=== PATIENT | female | born 1975 | race African-American/Black ===

== ENCOUNTER 2018-01-05 15:20 | Observation (INO) ==
[2018-01-05] MEDS ORDERED: ONDANSETRON 4 MG/2 ML VIAL IV STA (15:30)
[2018-01-05] MEDS ORDERED: HYDROmorphone 2 MG/1 ML VIAL IV STA (15:30)
[2018-01-05 15:44] LABS: Basophils % 0.4 % (0.0-0.8); Eosinophils # 0.1 10*3/uL (0.0-0.87); Eosinophils % 1.9 % (0.00-10.9); Hematocrit 40.4 VOL% (35.7-47.0); Immature Granulocytes % 1.9 %; Immature Granulocytes Absolute 0.14 #; Lymphocytes # 2.3 10*3/uL (1.4-4.0); Lymphocytes % 31.3 % (21.3-54.2); Mean Corpuscular HGB Conc 32.2 GM/DL (32-36); Mean Corpuscular Hemoglobin 29 PG (27-34); Mean Corpuscular Volume 89.2 FL (87-102); Mean Platelet Volume 9.8 FL (9.6-12.0); Monocytes # 0.4 10*3/uL (0.11-0.8); Monocytes % 5.2 % (1.7-12.7); Neutrophils # 4.4 10*3/uL (1.4-7.4); Neutrophils % 59.3 % (38.7-73.9); Platelet Count 371 T/CUMM (130-400); Red Blood Count 4.53 MC/CUMM (3.8-5.5); White Blood Count 7.4 T/CUMM (4-12)
[2018-01-05 16:06] LABS: Alanine Aminotransferase 18 U/L (13-56); Albumin 3.7 G/DL (3.4-5.0); Alkaline Phosphatase 91 U/L (45-117); Amylase 63 U/L (25-115); Aspartate Amino Transferase 17 U/L (0-37); Blood Urea Nitrogen 10 MG/DL (7-18); Calcium 8.5 MG/DL (8.5-10.1); Glucose 138 MG/DL (74-106); Osmolality,Calculated 281.3 MOS/KG (273-304); Potassium 3.7 MMOL/L (3.5-5.1); Sodium 141 MMOL/L (136-145); Total Protein 7.9 G/DL (6.4-8.3)
[2018-01-05 16:08] LABS: Lactic Acid 2.6 MMOL/L (0.4-2.0); Troponin I < 0.015 NG/ML (0.00-0.045)
[2018-01-05 16:38] LABS: PT Patient Result 10.7 SECS; Partial Thromboplastin Time 25.4 SECS (0-40)
[2018-01-05 16:44] LABS: Apearance,Urine CLEAR (Clear); Bilirubin,Urine Negative (Negative); Blood, Urine Negative (Negative); Glucose,Urine (UA) Negative (Negative); Ketones,Urine Negative (Negative); Mucus,Urine Occasional /LPF (Occasional); Nitrite,Urine Negative (Negative); Protein,Urine Negative; RBC,Urine <1 /HPF (0-4); Urine Color Yellow (Yellow); Urine Specific Gravity 1.036 (1.001-1.035); Urine Urobilinogen < 2.0 EU/DL (0.2-1.0); WBC,Urine <1 /HPF (0-6)
[2018-01-05 17:14] LABS: Barbiturates Screen,Urine Negative (Negative); Benzodiazepines Screen,Urine Negative (Negative); Cannabinoid Screen,Urine Negative (Negative); Opiate Screen,Urine Positive (Negative); Phencyclidine Screen,Urine Negative (Negative)
[2018-01-05] MEDS ORDERED: BUPIVACAINE 0.25% /EPI 10 ML VIAL ONE (17:21)
[2018-01-05] MEDS ORDERED: LIDOCAINE 1%/EPI INJ 20 ML VIAL ONE (17:21)
[2018-01-05] MEDS ORDERED: GLUCAGON 1 MG VIAL IM PRN (17:23)
[2018-01-05] MEDS ORDERED: CITRIC ACID/SODIUM CITRATE 30 ML UDCUP ONE (17:23)
[2018-01-05] MEDS ORDERED: DEXTROSE 50% 25 GM/50 ML VIAL IV PRN (17:23)
[2018-01-05] MEDS ORDERED: MORPHINE 4 MG/1 ML VIAL IV PRN (17:23)
[2018-01-05] MEDS ORDERED: CITRIC ACID/SODIUM CITRATE 30 ML UDCUP PO ONE (17:27)
[2018-01-05] MEDS ORDERED: PANTOPRAZOLE 40 MG VIAL IV ONE (17:27)
[2018-01-05] MEDS ORDERED: METOPROLOL TARTRATE 5 MG/5 ML VIAL IV ONE (17:46)
[2018-01-05] MEDS ORDERED: HYDROmorphone 2 MG/1 ML VIAL IV PRN (18:15)
[2018-01-05] MEDS ORDERED: ONDANSETRON 4 MG/2 ML VIAL IV PRN (18:15)
[2018-01-05] MEDS ORDERED: SODIUM CHLORIDE 0.9% 1,000 ML IV ONE (18:27)
[2018-01-05] MEDS ORDERED: SEVOFLURANE 1 UNIT/15 MINUTE INH ONE (18:27)
[2018-01-05] MEDS ORDERED: MIDAZOLAM 2 MG/2 ML VIAL ONE (18:27)
[2018-01-05] MEDS ORDERED: ONDANSETRON 4 MG/2 ML VIAL ONE (18:27)
[2018-01-05] MEDS ORDERED: SUCCINYLCHOLINE 200 MG/10 ML VIAL ONE (18:27)
[2018-01-05] MEDS ORDERED: PROPOFOL 200 MG/20 ML VIAL IV ONE (18:27)
[2018-01-05] MEDS ORDERED: fentaNYL 100 MCG/2 ML VIAL ONE (18:27)
[2018-01-05] MEDS: SODIUM CHLORIDE 0.45% 1,000 ML IV SCH (19:41)
[2018-01-05 20:35] LABS: Lactic Acid 2.2 MMOL/L (0.4-2.0)
[2018-01-05] MEDS: ceFAZolin 2,000 MG in PREMIX 1 EACH IV SCH (23:58)
[2018-01-06] MEDS: SODIUM CHLORIDE 0.45% 1,000 ML IV SCH ×2 (04:05→14:28)
[2018-01-06] MEDS: ceFAZolin 2,000 MG in PREMIX 1 EACH IV SCH (08:35)
[2018-01-06 14:00] VITALS: BP 119/68
== END 2018-01-06 14:05 | disposition home or self-care (01) ==
LOC: EDBD → EDUNIT# → N.ED 15:20 → N.EDINP 17:00 → INTOOBSV 17:00 → N.3E 17:26 → N.4E 17:30
PROVIDERS: ADMIT Surgery; ATTEND Surgery